=== PATIENT | female | born 1960 | race Caucasian/White ===

== ENCOUNTER 2022-07-20 14:26 | Emergency (ER) | payer OTHER, BC ==
[~2022-07-20] VITALS: Ht 162.6 cm; Wt 53.5 kg
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
[2022-07-20 14:42] VITALS: BP_SYST 129
--- NOTE | 2022-07-20 18:40 | NUR ---
ER DR. LOPEZ EXAMINING PT
[2022-07-20] MEDS ORDERED: IBUP-1971 PO (18:58)
[2022-07-20] MEDS ORDERED: HYDR-3927 PO (18:58)
[2022-07-20] MEDS ORDERED: SOM350 PO (18:58)
[2022-07-20] MEDS ORDERED: carisoprodoL 350 MG TABLET PO ONE (19:00)
[2022-07-20] MEDS ORDERED: HYDROcodone/ACETAMIN 10-325 MG TAB PO ONE (19:00)
[2022-07-20] MEDS ORDERED: IBUPROFEN 800 MG TABLET PO ONE (19:00)
[2022-07-20 19:16] VITALS: BP_SYST 117
--- NOTE | 2022-07-20 19:16 | NUR ---
Patient given written and verbal discharge instructions and verbalizes understanding. ER MD discussed with patient the results and treatment provided. Patient in stable condition. ID arm band removed. Rx of NORCO, SOMA AND IBUPROFEN given. Patient educated on pain management and to follow up with PMD. Pain Scale 0/10. Opportunity for questions provided and answered. Medication side effect fact sheet provided.
== END 2022-07-20 19:17 | disposition home or self-care (01) ==
LOC: SED 14:26
DX: S16.1XXA Strain of muscle, fascia and tendon at neck level, initial encounter (principal); S39.012A Strain of muscle, fascia and tendon of lower back, initial encounter; V49.49XA Driver injured in collision with other motor vehicles in traffic accident, initial encounter; Y93.89 Activity, other specified; Y92.89 Other specified places as the place of occurrence of the external cause; Y99.8 Other external cause status
CPT/HCPCS: 99284